=== PATIENT | female | born 2000 | race Caucasian/White ===

== ENCOUNTER 2024-01-21 19:45 | Emergency (ER) | payer MEDICAID ==
[2024-01-21] MEDS ORDERED: Bicillin LA 1.2 MILLION UNITS/2 ML SYRINGE ONE (20:20)
[2024-01-21] MEDS ORDERED: Dexamethasone 10 MG/ML VIAL ONE (20:20)
[2024-01-21 20:47] LABS: SARS-CoV-2 E Target Negative; SARS-CoV-2 N2 Target Negative; SARS-CoV-2 NAA Rapid Test Not Detected (NotDetected); SARS-CoV-2 RdRP gene Negative
== END 2024-01-21 21:03 | disposition home or self-care (01) ==
LOC: BURERS 19:45
DX: J02.0 Streptococcal pharyngitis (principal)
CPT/HCPCS: 87081; 87430; 87804; 96372; 99284; J0561; J1100; U0002